=== PATIENT | female | born 1935 | race African-American/Black ===

== ENCOUNTER → 2016-12-11 | Outpatient (CLI) | payer MEDICARE, BC ==
[2015-12-09 14:31] VITALS: BP 170/58
[~2016-12-11] MED LIST: AMLO-243 PO; ATEN50TA PO; HYDR1TAB12 PO; POTA10TA10 PO; PROAIR HFA8.5 GM IH
--- NOTE | 2016-12-11 12:37 | RAD ---
Thyroid ultrasound, 12/11/2016: History: Follow-up thyroid nodule The right lobe of the gland measures 4.2 x 1.4 x 1.4 cm while the left lobe of the gland measures 5.8 x 3.2 x 2.4 cm. Both lobes of the gland are heterogeneous. A 1.4 cm slightly hyperechoic nodule is noted in the lower pole of the right lobe of the gland. This is a solid-appearing nodule which is mildly heterogeneous. The right lobe of the gland was not scanned on the study of 11/23/2015, therefore the stability of this nodule is unclear. The left lobe of the gland demonstrates greater heterogeneity in a pattern suggesting confluent thyroid nodules. The largest discrete nodule lies in the lower pole of the left lobe and measures 2.8 cm in greatest diameter. It is stable when compared to the 11/23/2015 study. IMPRESSION: Multinodular thyroid gland with no significant change in the dominant left thyroid nodule as described above.
== END | disposition home or self-care (01) ==
LOC: US 16:10
PROVIDERS: ATTEND Surgery
DX: E04.1 Nontoxic single thyroid nodule (principal)
CPT/HCPCS: 76536

== ENCOUNTER → 2017-03-19 | Outpatient (CLI) | payer MEDICARE, BC ==
[2015-12-09 14:31] VITALS: BP 170/58
[~2017-03-19] MED LIST changes: +IOHEXOL 240 MG/ML 50ML VIAL. PO ONE; +IOHEXOL 300 MG/ML 75 ML VIAL IV ONE; -POTA10TA10 PO; +POTA10TA12 PO
--- NOTE | 2017-03-19 10:35 | RAD ---
Indication restage colon cancer. Axial images through the chest, abdomen and pelvis were obtained. Both oral and IV contrast were administered. Approximately 75 cc of Omnipaque 300 was administered intravenously. Comparison is made to a similar series of examinations 05/23/2016. CT chest: Findings. Enlarged left lobe of the thyroid, with some associated mediastinal extension, likely reflecting goiter is noted and appears similar. There is no significant hilar or mediastinal there are underlying emphysematous changes similar to the previous exam. An acute finding in the chest is not seen. There is no evidence of metastatic disease. 7-8 mm nodule is seen medially in the left lower lobe, image 44 series [address] abdomen and pelvis: Findings. There is a low-density mass, compatible with a cyst, in the left lobe of the liver similar to the previous exam. Evidence of metastatic disease to the liver is not seen. The spleen appears unremarkable. Known cholelithiasis is reproduced. There are no adrenal masses. The kidneys appear unremarkable. No pancreatic abnormality is seen. Acute finding in the abdomen or evidence of metastatic disease is not seen. Moderately extensive diverticulosis is noted associated with the large bowel. Active inflammation is not seen. An acute finding in the pelvis or definite evidence of metastatic disease is not seen. IMPRESSION: No acute finding seen in the chest, abdomen or pelvis. No definite evidence of metastatic disease. Stable pulmonary nodule in the left lower lobe. Enlargement of the left lobe of the thyroid with some associated mediastinal extension, stable. Cholelithiasis PQRS Compliance Statement: One or more of the following individualized dose reduction techniques were utilized for this examination: 1. Automated exposure control 2. Adjustment of the mA and/or kV according to patient size 3. Use of iterative reconstruction technique
== END ==
LOC: CT 07:43
PROVIDERS: ATTEND Internal Medicine Hematology & Oncology
DX: C18.2 Malignant neoplasm of ascending colon (principal); K80.20 Calculus of gallbladder without cholecystitis without obstruction
CPT/HCPCS: 71260; 74177; Q9966; Q9967

== ENCOUNTER → 2017-09-27 | Day surgery (SDC) | payer MEDICARE, BC ==
[~2017-09-27] MED LIST changes: -AMLO-243 PO; -ATEN50TA PO; -HYDR1TAB12 PO; +HYDROmorphone 2 MG/ML VIAL IV; -IOHEXOL 240 MG/ML 50ML VIAL. PO ONE; -IOHEXOL 300 MG/ML 75 ML VIAL IV ONE; +IV RINGERS,LACTATED 1000ML 1,000 ML IV; +LIDOCAINE 1% PF 2 ML VIAL. ID; +MORPHINE SULFATE 2 MG/ML DISP.SYRIN. IV; +ONDANSETRON PF 4 MG/2 ML VIAL. IV; -POTA10TA12 PO; -PROAIR HFA8.5 GM IH; +PROCHLORPERAZINE 10 MG/2 ML VIAL. IV; +SODIUM PHOSPHATES 19/7GM 133 ML ENEMA.; +fentaNYL PF VIAL 100 MCG/2 ML VIAL IV
== END | disposition home or self-care (01) ==
LOC: ENDOS 09:46
DX: Z53.8 Procedure and treatment not carried out for other reasons (principal)

== ENCOUNTER → 2018-01-04 | Outpatient (CLI) | payer MEDICARE, BC | END | disposition home or self-care (01) | LOC: US 10:32 | DX: E04.2 Nontoxic multinodular goiter (principal) | CPT/HCPCS: 76536 ==

== ENCOUNTER → 2019-11-10 | Outpatient (CLI) | payer MEDICARE ==
[2015-12-09 14:31] VITALS: BP 170/58
[~2019-11-10] MED LIST changes: +ALBU2.5V8 IH; +ALPR0.5T PO; +AMLO-265 PO; +AMLO1TAB6 PO; +ATEN50TA PO; +HYDR1TAB13 PO; -HYDROmorphone 2 MG/ML VIAL IV; -IV RINGERS,LACTATED 1000ML 1,000 ML IV; +KETO5DRO24 EACHEYE; -LIDOCAINE 1% PF 2 ML VIAL. ID; -MORPHINE SULFATE 2 MG/ML DISP.SYRIN. IV; +OLAN5TAB9 PO; -ONDANSETRON PF 4 MG/2 ML VIAL. IV; +POTASSIUM CHLO10 ME1 PO; +PRED5DRO16 EACHEYE; -PROCHLORPERAZINE 10 MG/2 ML VIAL. IV; -SODIUM PHOSPHATES 19/7GM 133 ML ENEMA.; +TOBR5DRO13 OP; -fentaNYL PF VIAL 100 MCG/2 ML VIAL IV
--- NOTE | 2019-11-10 13:50 | KCIC ---
CT HEAD WO CONTRAST Date: 11/10/2019 11:30 AM Clinical Indication: Comparison: None. Technique: 5 mm axial tomographic images were obtained of the head without contrast. These were viewed on brain and bone windows. One or more of the following dose reduction techniques were utilized: Automated exposure control (AEC), Adjustment of mA and/or kV according to patient size, Use of iterative reconstruction technique such as ASiR, CT scan done according to ALARA and image gently/image wisely Findings: Mild generalized cerebral and cerebellar volume loss. Mild nonspecific periventricular hypoattenuation, most commonly seen with chronic small vessel ischemic disease. Calcified atherosclerosis of the bilateral cavernous and paraclinoid internal carotid arteries and intracranial vertebral arteries. No intra- or extra-axial mass or fluid collection. No acute hemorrhage. The ventricles are normal in size, shape, and morphology. The rodrigues-white matter junction is normal. The subarachnoid cisterns are patent. The visualized paranasal sinuses are normal. The visualized portions of the orbits and globes are normal. The mastoid air cells are clear. The plastic press molder topogram shows no lytic lesion or fracture. Impression: No acute intracranial process. Mild cerebral volume loss. Mild chronic small vessel ischemic disease. Electronically signed by: John Solis MD (11/10/2019 1:46 PM) [facility]
== END | disposition home or self-care (01) ==
LOC: KCIC CT 11:19
PROVIDERS: ATTEND Psychiatry & Neurology Neurology with Special Qualifications in Child Neurology
DX: I67.82 Cerebral ischemia (principal); I65.23 Occlusion and stenosis of bilateral carotid arteries; G30.1 Alzheimer's disease with late onset
CPT/HCPCS: 70450